=== PATIENT | male | born 1955 | race Two or more races ===

== ENCOUNTER 2018-03-14 18:01 | Emergency (ER) | payer MEDICAID ==
[~2018-03-14] VITALS: Ht 167.6 cm; Wt 93.4 kg
[2018-03-14 18:09] VITALS: BP 132/89
--- NOTE | 2018-03-14 18:38 | Emergency Room Report ---
History of Present Illness General Chief Complaint: Earache Source: Patient Present Illness HPI 62-year-old male patient presents ER complaining of left ear pain for the past 2 days. Reports that he was seen by his primary care provider earlier today and told to go to the ER to have the wax removed from his ear. Denies fever, chest pain or shortness breath. Denies tinnitus. Denies sore throat or jaw pain. Allergies: Coded Allergies: No Known Allergies (Unverified , 03/14/18) Patient History Past Medical History: see triage record Reviewed Nursing Documentation: PMH: Agreed; PSxH: Agreed Nursing Documentation-PMH Hx Hypertension: Yes - cholesterol Review of Systems All Other Systems: negative except mentioned in HPI Physical Exam Vital Signs Date Time Temp Pulse Resp B/P (MAP) Pulse Ox O2 Delivery O2 Flow Rate FiO2 03/14/18 18:02 98.4 79 18 132/89 95 Room Air 98.4 Sp02 EP Interpretation: reviewed, normal General Appearance: well appearing, no apparent distress, alert, GCS 15, non- toxic Head: normocephalic, atraumatic Eyes: bilateral eye normal inspection, bilateral eye PERRL ENT: hearing grossly normal, normal pharynx, no angioedema, normal voice, TMs + canals normal - right ear, uvula midline, moist mucus membranes, other - left ear: Cerumen impaction, no pain with ear pulling Neck: full range of motion Respiratory: lungs clear, normal breath sounds, no rhonchi, no respiratory distress, no accessory muscle use, no wheezing, speaking full sentences Cardiovascular #1: regular rate, rhythm, no edema Musculoskeletal: back normal, digits/nails normal, gait/station normal, normal range of motion, non-tender Neurologic: alert, oriented x3, responsive, motor strength/tone normal, sensory intact Psychiatric: mood/affect normal Skin: no rash Lymphatic: no adenopathy Medical Decision Making PA Attestation Dr. Flores is my supervising Physician whom patient management has been discussed with. Diagnostic Impression: Primary Impression: Cerumen impaction ER Course Pt presents to ED requesting ear lavage. DDX considered but are not limited to rhinitis, sinusitis, otitis media, otitis externa, cerumen impaction. VITAL SIGNS are WNL, patient is afebrile. ED INTERVENTIONS: PE shows impacted cerumen in ear. No mastoid swelling or erythema, no rash or vesicles on face. Patient ear cleaned and flushed with saline. Following lavage of ear, PE nonerythematous or edematous ear canal, no TM erythema or edema, no TM rupture. Low suspicion for otitis externa or otitis media. Patient reports symptoms improved following lavage. Patient instructed not to use Q-tips. Follow-up with primary care provider for further treatment and referral. Discuss referral to ENT. DISCHARGE: Rx provided for Debrox At this time pt is stable for d/c to home. patient resting comfortably, no acute distress, nontoxic appearing, talking without difficulty, smiling. Patient to take medications as instructed Will provide with patient care instructions and any necessary prescriptions. Care plan and follow-up instructions provided. Patient instructed to follow-up with primary care in 3 - 5 days. Patient questions asked and answered. patient reports understanding and agreement treatment plan. ER precautions given. Patient instructed to return to ER immediately for any new or worsening of symptoms including but not limited to increasing SOB, persistent fever. - Please note that this Emergency Department Report was dictated using [employer] TECHNOLOG[employer]istant auditor technology software, occasionally this can lead to erroneous entry secondary to interpretation by the dictation equipment. Last Vital Signs Date Time Temp Pulse Resp B/P (MAP) Pulse Ox O2 Delivery O2 Flow Rate FiO2 03/14/18 18:09 98.4 79 18 132/89 95 Room Air 98.4 Status: improved Disposition: HOME, SELF-CARE Condition: Stable Scripts Carbamide Peroxide (DEBROX) 15 Ml Drops 5 DROP LEFT EAR TWICE A DAY for 4 Days, ML 0 Refills Prov: Yobani Santos 03/14/18 Patient Instructions: Cerumen Impaction Additional Instructions: Followup with primary care provider in 3 -5 days. Discuss referral to ENT. Take medications as directed. Patient questions asked and answered. ER precautions given, patient instructed to return to ER immediately for any new or worsening of symptoms. Yobani Santos Mar 14, 2018 18:38
[2018-03-14] MEDS ORDERED: DEBROX15 M1 LEFT EAR (19:04)
[2018-03-14 19:09] VITALS: BP 132/89
== END 2018-03-14 19:09 | disposition home or self-care (01) ==
LOC: EMR 18:09
DX: H61.22 Impacted cerumen, left ear (principal)
CPT/HCPCS: 69210; 99282

== ENCOUNTER 2018-05-04 21:56 | Emergency (ER) | payer MEDICAID ==
[~2018-05-04] VITALS: Ht 172.7 cm; Wt 92.5 kg
[~2018-05-04 21:56] MED LIST: DEBROX15 M1 LEFT EAR
[2018-05-04] MEDS ORDERED: DiphenhydrAMINE 50mg/ml Inj IVP ONE (22:15)
[2018-05-04] MEDS ORDERED: Solu-MEDROL 125mg Inj IVP ONE (22:15)
[2018-05-04] MEDS ORDERED: EPINEPHrine 1mg/1ml Amp IM ONE (22:15)
[2018-05-04] MEDS ORDERED: Albuterol ud Inhalation HHN ONE (22:15)
--- NOTE | 2018-05-04 22:17 | Emergency Room Report ---
History of Present Illness General Chief Complaint: Allergic Reaction Source: Patient, Family Member Present Illness HPI Patient presents with allergic reaction. He had a root canal done today and was given amoxicillin. After taking this medication he started having itching. He denies any shortness of breath but does have a slight cough at this time. The patient is a smoker. He's never been allergic to medication before. His skin is red and itching. Denies any chest pain. He has no trouble swallowing or closing of his throat at this time. It is causing anxiety. He denies nausea or vomiting. No dizziness. No headache. There is some swelling of his hands and feet. No joint pain. No fevers or chills. H/O HTN. Allergies: Coded Allergies: No Known Allergies (Unverified , 03/14/18) Patient History Past Medical History: see triage record Social History: Reports: smoking Social History Narrative Reviewed Nursing Documentation: PMH: Agreed; PSxH: Agreed Nursing Documentation-PMH Hx Hypertension: Yes - cholesterol Review of Systems Constitutional: Denies: fever ENT: Reports: see HPI Respiratory: Reports: see HPI Cardiovascular: Reports: see HPI Gastrointestinal: Reports: see HPI Musculoskeletal: Denies: joint pain Skin: Reports: see HPI Neurological: Reports: see HPI Allergic: Reports: see HPI Physical Exam Vital Signs Date Time Temp Pulse Resp B/P (MAP) Pulse Ox O2 Delivery O2 Flow Rate FiO2 05/04/18 22:02 97.8 85 18 136/90 97 Room Air 97.9 Sp02 EP Interpretation: reviewed, normal General Appearance: well appearing, no apparent distress, GCS 15 Head: normocephalic Eyes: bilateral eye normal inspection, bilateral eye PERRL ENT: normal pharynx, no angioedema, moist mucus membranes, other - coating of tongue (tobacco) Neck: supple, other - no stridor Respiratory: wheezing, expiration Cardiovascular #1: regular rate, rhythm Cardiovascular #2: 2+ radial (R) Gastrointestinal: normal inspection, normal bowel sounds, non tender, no mass, non-distended, overweight Musculoskeletal: back normal, gait/station normal, normal range of motion, swelling - hands and feet Neurologic: alert, oriented x3, grossly normal Psychiatric: anxious Skin: warm/dry, other - erythroderma with some excoriations Medical Decision Making Diagnostic Impression: Primary Impression: Allergic reaction Qualified Codes: T78.40XA - Allergy, unspecified, initial encounter ER Course Patient presents with probable allergic reaction to amoxicillin. I differential includes anaphylaxis, hives, bronchospasm from smoking amongst others. The patient be evaluated with EKG and labs. We'll be treating him with slight Medrol, Benadryl Benadryl and I am epinephrine while he is on a service tech. In addition he'll receive a albuterol treatment. Patient refused IV and labs. EKG with NSR and BBB. Improving and discussed refusal. Oral medications ordered. Patient improved here. Still with swelling. Lungs now clear. Discussed that he had refused more aggressive care and therefore course of illness might be prolonged. He understands. Also discussed that he cannot take more penicillins. No evidence of anaphylaxis and therefore epi pen not prescribed. Patient stable for outpatient observation and treatment. EKG Diagnostic Results Rate: normal Rhythm: NSR ST Segments: no acute changes - RBBB Rhythm Strip Diag. Results EP Interpretation: yes Rhythm: NSR, no PVC's, no ectopy Last Vital Signs Date Time Temp Pulse Resp B/P (MAP) Pulse Ox O2 Delivery O2 Flow Rate FiO2 05/05/18 00:15 97.9 83 22 163/93 96 Room Air 21 97.9 Status: improved Disposition: HOME, SELF-CARE Condition: Improved Scripts Diphenhydramine Hcl* (BENADRYL*) 25 Mg Capsule 25 MG ORAL Q6H PRN for Itching, #14 CAP 1 Refill Prov: Micheal Webster M.D. 05/05/18 Prednisone* (PREDNISONE*) 20 Mg Tablet 40 MG ORAL DAILY, #10 TAB Prov: Micheal Webster M.D. 05/05/18 Micheal Webster M.D. May 04, 2018 22:17
[2018-05-04] MEDS ORDERED: DiphenhydrAMINE 50mg/ml Inj IM ONE (22:45)
[2018-05-04 23:33] VITALS: BP 163/93
[2018-05-05] MEDS ORDERED: PREDNISONE20 MG ORAL (00:05)
[2018-05-05] MEDS ORDERED: BENADRYL25 MG ORAL (00:05)
[2018-05-05 00:15] VITALS: BP 163/93
== END 2018-05-05 00:15 | disposition home or self-care (01) ==
LOC: EMR 22:30
DX: T78.40XA Allergy, unspecified, initial encounter (principal); X58.XXXA Exposure to other specified factors, initial encounter; M79.89 Other specified soft tissue disorders; F17.200 Nicotine dependence, unspecified, uncomplicated; I10 Essential (primary) hypertension
CPT/HCPCS: 93005; 94640; 94664; 96372; 96374; 96375; 99284; J1200; J7512

== ENCOUNTER 2019-07-31 17:56 | Emergency (ER) | payer MEDICAID ==
[~2019-07-31] VITALS: Ht 172.7 cm; Wt 95.3 kg
[~2019-07-31 17:56] MED LIST changes: +BENADRYL25 MG ORAL; +PREDNISONE20 MG ORAL
[2019-07-31 18:49] VITALS: BP 141/94
[2019-07-31 19:50] VITALS: BP 141/94
--- NOTE | 2019-07-31 19:51 | Emergency Room Report ---
History of Present Illness General Chief Complaint: Upper Extremity Injury Source: Patient Present Illness HPI 64-year-old male presents to the emergency department complaining of 8/10 of severity left pinky pain x2 years. Patient states there is no change in character of her symptoms over the course of the last 2 years however he wanted to get to the bottom of his situation tonight. Patient denies recent trauma or fall he states he vaguely remembers hurting his finger 2 years ago. Patient reports ever since he has had decreased ability to flex the pinky in comparison to the left hand. Patient is right-hand dominant. He denies erythema, swelling or open wounds. He denies bruises. Patient denies history of arthritis or gout. He reports chronic irregular bony appearance to his fifth digit. He states on occasion he will wrap/bandage his pinky which provide some relief of his symptoms. Patient states he has not been evaluated for his pinky since incident. Allergies: Coded Allergies: No Known Allergies (Unverified , 03/14/18) Patient History Past Medical History: see triage record Past Surgical History: none Pertinent Family History: none Reviewed Nursing Documentation: PMH: Agreed; PSxH: Agreed Nursing Documentation-PMH Past Medical History: No History, Except For Hx Hypertension: Yes - cholesterol Review of Systems All Other Systems: negative except mentioned in HPI Physical Exam Vital Signs Date Time Temp Pulse Resp B/P (MAP) Pulse Ox O2 Delivery O2 Flow Rate FiO2 07/31/19 18:36 98.2 90 18 141/94 (110) 96 Room Air Sp02 EP Interpretation: reviewed, normal General Appearance: no apparent distress, alert, GCS 15, non-toxic Head: normocephalic, atraumatic Eyes: bilateral eye normal inspection, bilateral eye PERRL ENT: hearing grossly normal, normal voice Neck: full range of motion Respiratory: lungs clear, normal breath sounds, speaking full sentences Cardiovascular #1: regular rate, rhythm, normal capillary refill Musculoskeletal: back normal, gait/station normal, tender - DIP joint of the left 5th digit, other - decreased flexion of left 5th digit Neurologic: alert, motor strength/tone normal, oriented x3, sensory intact, responsive, speech normal Psychiatric: judgement/insight normal Skin: normal color Lymphatic: no adenopathy Medical Decision Making PA Attestation Dr. Mills Is my supervising Physician whom patient management has been discussed with. Diagnostic Impression: Primary Impression: Pain of finger of left hand Additional Impression: Pain of finger joint Qualified Codes: M25.542 - Pain in joints of left hand ER Course 64-year-old male presents to the emergency department complaining of 8/10 of severity left pinky pain x2 years. Patient states there is no change in character of her symptoms over the course of the last 2 years however he wanted to get to the bottom of his situation tonight. Patient denies recent trauma or fall he states he vaguely remembers hurting his finger 2 years ago. Patient reports ever since he has had decreased ability to flex the pinky in comparison to the left hand. Patient is right-hand dominant. He denies erythema, swelling or open wounds. He denies bruises. Patient denies history of arthritis or gout. He reports chronic irregular bony appearance to his fifth digit. He states on occasion he will wrap/bandage his pinky which provide some relief of his symptoms. Patient states he has not been evaluated for his pinky since incident. Ddx considered but are not limited to Fracture, dislocation, contusion, Sprain/ Strain/Spasm, gout, arthritis, bony lesion just to name a few. Vital signs: are WNL, pt. is afebrile H&PE are most consistent with musculoskeletal injury will perform imaging to r/ o fractures/dislocations. ORDERS: - X-ray left hand complete with 3 views- negative for fx, Dislocation, or significant soft tissue injury, per preliminary read in ED, and signed by BETTE White, my supervising physician has reviewed, and agrees with my interpretation. ED INTERVENTIONS: -The patient's finger was wrapped for comfort by ED laundry technician. Patient remains NVI both before and after application. -I do not identify an emergent condition at this time. With current presentation , pt. is stable for close outpatient follow up and conservative treatment. D/ w pt. to return promptly to ED with worsening or new symptoms.- Pt. verbalizes' understanding and agreement with proposed treatment plan. DISCHARGE: At this time pt. is stable for d/c to home. Will provide printed patient care instructions, and any necessary prescriptions. Care plan and follow up instructions have been discussed with the patient prior to discharge. Other X-Ray Diagnostic Results Other X-Ray Diagnostic Results : X-Ray ordered: Left hand # of Views/Limited Vs Complete: 3 View Indication: Pain EP Interpretation: Yes BETTE Xray: Interpretation reviewed, by supervising MD, and agrees with findings. Interpretation: no dislocation, no soft tissue swelling, no fractures Impression: No acute disease Electronically Signed by: Elly White PA-C Last Vital Signs Date Time Temp Pulse Resp B/P (MAP) Pulse Ox O2 Delivery O2 Flow Rate FiO2 07/31/19 18:49 98.2 86 18 141/94 96 Room Air Disposition: HOME, SELF-CARE Condition: Stable Scripts Naproxen* (NAPROXEN*) 500 Mg Tablet 500 MG ORAL BID for 10 Days, #20 TAB Prov: Elly White 07/31/19 Referrals: NON PHYSICIAN (PCP) Patient Instructions: Joint Pain, [id number] Additional Instructions: Take medications as directed. Follow up with an ORTHOPEDIC HAND SPECIALIST in 3-5 days, even if your symptoms have resolved. Your Primary care doctor will be able to provide you with a referral. If symptoms persist MRI may be required at the discretion of your PCP or Ortho Specialist. --Please review list of primary care clinics, if you do not already have a primary care provider who can give you an Orthopedic Referral. Return sooner to ED if new symptoms occur, or current symptoms become worse. - Please note that this Emergency Department Report was dictated using imagine[employer] teacher technology software, occasionally this can lead to erroneous entry secondary to interpretation by the dictation equipment. Elly White Jul 31, 2019 19:51
[2019-07-31] MEDS ORDERED: NAPROXEN500 M2 ORAL (19:52)
--- NOTE | 2019-08-01 14:35 | Diagnostic Imaging Report ---
Indication: left hand pain. Comparison: None Findings: 3 views of the left hand were obtained. No acute fracture is identified. There is widening of the scapholunate space indicating disruption of the scapholunate ligament. There is a bandage over the fifth digit which is presumably the area of concern. IMPRESSION: No acute injury appreciated. Scapholunate dissociation
== END 2019-07-31 19:50 | disposition home or self-care (01) ==
LOC: EMR 19:27
DX: M25.542 Pain in joints of left hand (principal)
CPT/HCPCS: 73130; Z7502; 99283